=== PATIENT | male | born 1960 | race Caucasian/White ===

== ENCOUNTER 2019-11-16 01:43 | Emergency (ER) | payer BC ==
[2019-11-16] MEDS ORDERED: methylPREDNISolone Sodium Succinate 125 MG/2 ML SDV IVPUSH ONE (02:14)
[2019-11-16] MEDS ORDERED: diphenhydrAMINE 50 MG/ML SDV IVPUSH ONE ×2 (02:14→03:12)
[2019-11-16] MEDS ORDERED: Famotidine 20 MG/2 ML SDV IVPUSH ONE ×2 (02:14→03:13)
[2019-11-16] MEDS ORDERED: Albuterol/Ipratropium 3.0-0.5 MG/3 ML Neb Soln NEB ONE (02:15)
--- NOTE | 2019-11-16 02:46 | EDM.PDOC ---
ED HPI GENERAL MEDICAL PROBLEM - General Chief Complaint: Allergic Reaction Stated Complaint: ALLERGIC REACTION Time Seen by Provider: 11/16/19 02:08 Source of Information: Reports: Patient, Family History Limitations: Reports: No Limitations - History of Present Illness INITIAL COMMENTS - FREE TEXT/NARRATIVE: Is a 59-year-old male. He went to the [employer] fast and ate crab this evening and about 3 hours later he noted he started itching. The itching got worse and his skin got red and he comes to the ER for evaluation. He says since he has been in the ER he has been having some wheezing as well. He has no history of allergies to crabmeat. Denies any other acute symptoms. He is not taking any new medications. - Related Data Allergies Allergy/AdvReac Type Severity Reaction Status Date / Time shellfish derived Allergy Hives Verified 11/16/19 01:58 Home Meds: Home Meds predniSONE [Prednisone] 50 mg PO QAM #4 tablet 11/16/19 [Rx] Past Medical History - Past Health History Medical/Surgical History: Denies Medical/Surgical History Social & Family History - Tobacco Use Smoking Status *Q: Never Smoker ED ROS ALLERGIC REACTION - Review of Systems Review Of Systems: See Below Constitutional: Denies: Fever, Chills HEENT: Denies: Throat Pain, Throat Swelling Respiratory: Reports: Wheezing. Denies: Cough Cardiovascular: Denies: Chest Pain Endocrine: Reports: No Symptoms GI/Abdominal: Denies: Abdominal Pain, Diarrhea, Nausea, Vomiting : Reports: No Symptoms Musculoskeletal: Reports: No Symptoms Skin: Reports: Other (As per HPI) Neurological: Reports: No Symptoms Psychiatric: Reports: No Symptoms Hematologic/Lymphatic: Reports: No Symptoms ED EXAM GENERAL NO PERIP PULSE - Physical Exam Exam: See Below Exam Limited By: No Limitations General Appearance: Alert, WD/WN, No Apparent Distress Eye Exam: Bilateral Eye: Normal Inspection Ears: Normal External Exam Nose: Normal Inspection Throat/Mouth: Normal Lips, Normal Oropharynx, Normal Voice, No Airway Compromise , Other (No swelling and no feeling of shortness of breath) Head: Normocephalic Neck: Supple Respiratory/Chest: No Respiratory Distress, Lungs Clear, Normal Breath Sounds, Other (He does have some faint expiratory wheezing noted) Cardiovascular: Regular Rate, Rhythm, No Murmur GI/Abdominal: Soft, Non-Tender Back Exam: Full Range of Motion Extremities: Other (Is noted to have redness of his upper extremity abdomen back chest and face, the lower extremities at the ankles he does not have any redness) Neurological: Alert, Oriented Psychiatric: Normal Affect, Normal Mood Skin Exam: Warm, Dry, Erythema, Other (This erythema includes face chest abdomen back and upper extremities I cannot tell about the lower extremities but his mid sauceda down to his feet are not red) Course - Vital Signs Last Recorded V/S: Last Vital Signs Temp 97.8 F 11/16/19 01:55 Pulse 98 11/16/19 01:55 Resp 16 11/16/19 01:55 BP 152/102 H 11/16/19 01:55 Pulse Ox 94 L 11/16/19 02:20 - Orders/Labs/Meds Orders: Active Orders 24 hr Category Date Time Status RT Aerosol Therapy [RC] ASDIRECTED Care 11/16/19 02:15 Active Meds: Medications Discontinued Medications Generic Name Dose Route Start Last Admin Trade Name Freq PRN Reason Stop Dose Admin Albuterol/Ipratropium 3 ml 11/16/19 02:15 11/16/19 02:23 Duoneb 3.0-0.5 Mg/3 Ml NEB 11/16/19 02:16 3 ml ONETIME ONE Administration Diphenhydramine HCl 50 mg 11/16/19 02:14 11/16/19 02:27 Benadryl IVPUSH 11/16/19 02:15 50 mg ONETIME ONE Administration Diphenhydramine HCl 25 mg 11/16/19 03:12 11/16/19 03:37 Benadryl IVPUSH 11/16/19 03:13 25 mg ONETIME ONE Administration Famotidine 20 mg 11/16/19 02:14 11/16/19 02:28 Pepcid IVPUSH 11/16/19 02:15 20 mg ONETIME ONE Administration Famotidine 20 mg 11/16/19 03:13 11/16/19 03:38 Pepcid IVPUSH 11/16/19 03:14 20 mg ONETIME ONE Administration Methylprednisolone Sodium Succinate 125 mg 11/16/19 02:14 11/16/19 02:25 Solu-Medrol IVPUSH 11/16/19 02:15 125 mg ONETIME ONE Administration - Re-Assessments/Exams Free Text/Narrative Re-Assessment/Exam: 11/16/19 03:13 Patient is breathing much better. The skin is not as red and the hives on his face have resolved. I am going to give him some additional medications and watch him a little longer and then I will release him as long as he is doing well. We spoke that obviously shellfish is not in his life any longer. 11/16/19 04:05 The patient is sleeping peacefully. Most of the redness is resolved on his arms and face and body. His hands are still somewhat swollen but they are also improving. He is no longer wheezing. He wants to go home. Departure - Departure Time of Disposition: 04:05 Disposition: Home, Self-Care 01 Condition: Fair Clinical Impression: Allergic reaction to shellfish - Discharge Information *PRESCRIPTION DRUG MONITORING PROGRAM REVIEWED*: Not Applicable *COPY OF PRESCRIPTION DRUG MONITORING REPORT IN PATIENT KATE: Not Applicable Prescriptions: predniSONE [Prednisone] 50 mg PO QAM #4 tablet Instructions: Food Allergy Referrals: PCP,None [Primary Care Provider] - Forms: ED Department Discharge Additional Instructions: The steroids that she got in the ER will last for a 4 hours. The prescription and going to give to you is only for 4 days and you can actually start it on Sunday morning, realize that shellfish is now no longer an option for a food, follow-up with your family doctor as needed and return to the ER as needed Sepsis Event Note - Evaluation Sepsis Screening Result: No Definite Risk - Focused Exam Vital Signs: Vital Signs Temp Pulse Resp BP Pulse Ox Pulse Ox 11/16/19 02:20 94 L 11/16/19 01:55 97.8 F 98 16 152/102 H 94 L Date Exam was Performed: 11/16/19 Time Exam was Performed: 04:05 - My Orders Last 24 Hours: My Active Orders 11/16/19 02:15 RT Aerosol Therapy [RC] ASDIRECTED - Assessment/Plan Last 24 Hours: My Active Orders 11/16/19 02:15 RT Aerosol Therapy [RC] ASDIRECTED
== END 2019-11-16 04:24 | disposition home or self-care (01) ==
LOC: JD.ED 01:43
DX: T78.1XXA Other adverse food reactions, not elsewhere classified, initial encounter (principal)
CPT/HCPCS: 94640; 96374; 96375; 96376; 99283; J1200; J2930; J3490; J7620-GY